=== PATIENT | male | born 1940 | race Caucasian/White ===

== ENCOUNTER → 2022-12-31 | Day surgery (SDC) | payer OTHER, MEDICARE ==
[~2022-12-31] MED LIST: Glycopyrrolate 0.2 MG/ML 5 ML SYRINGE ONE; Lidocaine 1% PF 5 ML VIAL ONE; PHENYLEPHRINE-NS 100 MCG/ML 10 ML SYRINGE ONE; PROPOFOL 20 ML ONE; Rocuronium Bromide 10 MG/ML (10ML VIAL) ONE; Succinylcholine 200 MG/10 ml SYRINGE FS ONE; ePHEDrine Sulfate 50 MG/10 ML VIAL ONE
[2022-12-31 11:59] LABS: Anion Gap 12 mmol/L (10-20); BUN (Urea Nitrogen) 31 mg/dL (8.4-25.7); Calc. Creatinine Clearance 0 mL/min (70-130); Calcium 9.4 mg/dL (7.8-10.44); Carbon Dioxide 23 mmol/L (23-31); Chloride 108 mmol/L (98-107); Estimated GFR 75; Glucose 118 mg/dL (83-110); Potassium 4.4 mmol/L (3.5-5.1); Sodium 139 mmol/L (136-145)
== END ==
LOC: CSHSDC 10:28
PROVIDERS: ATTEND Specialist
DX: I48.11 Longstanding persistent atrial fibrillation (principal); I11.0 Hypertensive heart disease with heart failure; I50.9 Heart failure, unspecified; Q21.12 Patent foramen ovale; I25.10 Atherosclerotic heart disease of native coronary artery without angina pectoris; I08.1 Rheumatic disorders of both mitral and tricuspid valves; D64.9 Anemia, unspecified; K21.9 Gastro-esophageal reflux disease without esophagitis; R06.02 Shortness of breath; E78.5 Hyperlipidemia, unspecified; F41.9 Anxiety disorder, unspecified; E78.2 Mixed hyperlipidemia; Z79.82 Long term (current) use of aspirin; Z79.899 Other long term (current) drug therapy
CPT/HCPCS: 80048; 92960; 93005; 93010; 93312; J2704